=== PATIENT | female | born 1945 | race Caucasian/White ===

== ENCOUNTER → 2017-02-09 | Outpatient (CLI) | payer OTHER ==
[~2017-02-09] VITALS: Ht 167.6 cm; Wt 88.2 kg
[~2017-02-09] MED LIST: HYDROCODON-ACE1 EAC7 PO; LEXAPRO 10 MG T10 M2 PO; NORCO 5-325 TA1 EACH PO; OXYCODONE HCL E10 MG PO; PROTONIX40 M4 PO; ROCALTROL0.5 MCG PO; TOPROL XL25 MG PO; TUMS PO; XANAX 0.25 MG0.25 MG PO
[2017-02-09 08:55] VITALS: BP 103/47
== END ==
LOC: SPEC 08:43
DX: K85.90 Acute pancreatitis without necrosis or infection, unspecified (principal); E11.9 Type 2 diabetes mellitus without complications; I10 Essential (primary) hypertension; M19.90 Unspecified osteoarthritis, unspecified site

== ENCOUNTER → 2017-02-15 | Outpatient (CLI) | payer OTHER ==
[~2017-02-15] VITALS: Ht 160 cm; Wt 88.3 kg
[2017-02-15 09:27] VITALS: BP 119/68
[2017-02-15 13:24] LABS: INR 2.2; PROTIME 22.8 Seconds (9.3-11.4)
== END ==
LOC: SPEC 07:46
PROVIDERS: Radiology Vascular & Interventional Radiology
DX: T85.9XXA Unspecified complication of internal prosthetic device, implant and graft, initial encounter (principal)

== ENCOUNTER → 2017-02-24 | Outpatient (CLI) | payer OTHER ==
[~2017-02-24] VITALS: Ht 165.1 cm; Wt 72.6 kg
[2017-02-24 09:32] VITALS: BP 104/39
== END | disposition home or self-care (01) ==
LOC: SPEC 09:07
DX: T85.9XXA Unspecified complication of internal prosthetic device, implant and graft, initial encounter (principal)

== ENCOUNTER → 2017-03-10 | Outpatient (CLI) | payer OTHER ==
[~2017-03-10] VITALS: Ht 160 cm; Wt 74.8 kg
[2017-03-10 08:12] VITALS: BP 137/77
[2017-03-10 08:41] LABS: APTT 30.6 Seconds (24.5-32.8); INR 1.6; PROTIME 16.6 Seconds (9.3-11.4)
== END ==
LOC: SPEC 07:47
PROVIDERS: Radiology Vascular & Interventional Radiology
DX: K85.90 Acute pancreatitis without necrosis or infection, unspecified (principal); E11.9 Type 2 diabetes mellitus without complications; I10 Essential (primary) hypertension; M19.90 Unspecified osteoarthritis, unspecified site; I73.9 Peripheral vascular disease, unspecified; Z93.3 Colostomy status